=== PATIENT | female | born 1960 ===

== ENCOUNTER 2017-11-19 02:54 | Emergency (ER) | payer BC ==
[2017-11-19] MEDS ORDERED: KETOROLAC 30 MG/ML INJ ONE (03:30)
[2017-11-19] MEDS ORDERED: ONDANSETRON 4 MG/2 ML VIAL ONE (03:30)
[2017-11-19] MEDS ORDERED: NA CHLORIDE 0.9% 1,000 ML ONE (03:31)
[2017-11-19 03:48] LABS: Absolute Lymphocytes (CBC) 3.8 K/uL (0.7-4.9); Absolute Monocytes 1.4 K/uL (0.1-1.3); Absolute Neutrophil 7.2 K/uL (1.8-8.0); Basophils % 1.3 % (0-1.3); Eosinophils % 1.1 % (0-4.4); Hematocrit 40.8 % (36.0-45.0); MCV 92.8 fL (80-100); Monocytes % 10.9 % (3.3-12.3); RBC Red Blood Cell Count 4.39 M/uL (3.86-4.86)
[2017-11-19 04:08] LABS: Bilirubin Direct 0.1 mg/dL (0-0.2); Bilirubin Total 0.5 mg/dL (0.2-1.0); Potassium 3.2 mmol/L (3.5-5.1); Protein, Total 7.8 g/dL (6.4-8.2)
[2017-11-19 04:18] LABS: Urine Blood 2+ (NEG); Urine Glucose NEGATIVE (NEG); Urine Protein 1+ (NEG); Urine Specific Gravity >1.030 (1.005-1.030); Urine pH 5.5 (5.0-7.0)
[2017-11-19] MEDS ORDERED: PROMETHAZINE 25 MG/ML VIAL ONE (04:51)
[2017-11-19 04:57] LABS: Urine Bacteria <20 /HPF (<20); Urine Culture Reflex Order REFLEXED
[2017-11-19] MEDS ORDERED: POTASSIUM CL SA 10 MEQ TAB PO ONE (05:01)
[2017-11-19] MEDS ORDERED: MEPERIDINE HCL 25 MG/0.5 ML ONE (05:32)
--- NOTE | 2017-11-19 05:47 | ER ---
Nurse's Notes [facility] Name: Purvi Peck Age: 57 yrs Sex: Female : 1960 Arrival Date: 11/19/2017 Time: 02:59 Bed 25 Private MD: out of town, doctor Diagnosis: Right ureteral calculus with hydronephrosis and hydroureter Presentation: 11/19 03:15 Presenting complaint: Patient states: that for the past 2 days she has been having fc right side lower abd pain that radiates around to the back. States that she has hx of kidney stones and that it what it feels like. Transition of care: patient was not received from another setting of care. Onset of symptoms was November 17, 2017. Risk Assessment: Do you want to hurt yourself or someone else? Patient reports no desire to harm self or others. Care prior to arrival: None. 03:15 Method Of Arrival: Ambulatory 03:15 Acuity: ROWENA 3 fc 06:03 Initial Sepsis Screen: Does the patient meet any 2 criteria? No. Patient's initial [facility] sepsis screen is negative. Does the patient have a suspected source of infection? No. Patient's initial sepsis screen is negative. Triage Assessment: 06:02 General: Behavior is calm, cooperative. 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 - Social history:: Smoking status: Patient/guardian denies using tobacco. - Ebola Screening: : Patient negative for fever greater than or equal to 101.5 degrees Fahrenheit, and additional compatible Ebola Virus Disease symptoms Patient denies exposure to infectious person Patient denies travel to an Ebola-affected area in the 21 days before illness onset. Screenin:18 Abuse screen: Denies threats or abuse. Nutritional screening: No deficits noted. fc Tuberculosis screening: No symptoms or risk factors identified. Fall Risk None identified. Assessment: 03:44 General: Appears uncomfortable, well groomed, well developed. Pain: Complains of pain lc1 in back Pain currently is 10 out of 10 on a pain scale. Quality of pain is described as sharp, Pain began 2-3 days ago. Is continuous, Alleviated by nothing. Neuro: No deficits noted. Cardiovascular: No deficits noted. Respiratory: Airway is patent. GI: Bowel sounds present X 4 quads. Abd is soft X 4 quads Guarding noted. : No signs and/or symptoms were reported regarding the genitourinary system. EENT: No signs and/or symptoms were reported regarding the EENT system. Derm: No signs and/or symptoms reported regarding the dermatologic system. Musculoskeletal: No signs and/or symptoms reported regarding the musculoskeletal system. 04:21 Reassessment: No changes from previously documented assessment. Patient and/or family lc1 updated on plan of care and expected duration. Pain level reassessed. Patient states symptoms have not improved. Vital Signs: 03:15 Weight 83.91 kg (R); Height 5 ft. 4 in. (162.56 cm) (R); Pain 10/10; fc 03:19 BP 167 / 91 RA; Pulse 68; Resp 20; Temp 97.6(TE); Pulse Ox 98% ; Pain 10/10; lc1 03:35 BP 188 / 79; Pulse 68; lc1 04:29 BP 172 / 81; Pulse 57; Resp 20; Pulse Ox 100% on R/A; Pain 7/10; lc1 05:25 BP 174 / 80; Pulse 50; Resp 18; Temp 97.8(TE); Pain 6/10; lc1 05:42 BP 123 / 58; Pulse 69; Resp 18; lc1 03:15 Body Mass Index 31.75 (83.91 kg, 162.56 cm) ED Course: 02:59 Patient arrived in ED. es 02:59 out of town, doctor is Private Physician. es 03:08 Francisca Lau is Primary Nurse. lc1 03:08 Yaya Kulkarni MD is Attending Physician. pkl 03:15 Arm band placed on Patient placed in an exam room, on a stretcher. fc 03:18 Triage completed. fc 03:18 Allergy band placed. Placed in gown. Bed in low position. Call light in reach. 03:30 Inserted saline lock: 20 gauge in left antecubital area, using aseptic technique. Blood mw2 collected. 03:[address] via wheelchair. kw1 03:58 CT completed. Patient tolerated procedure well. Patient moved back from NE. kw1 04:00 CT Stone Protocol In Process Unspecified. EDMS 05:42 No provider procedures requiring assistance completed. IV discontinued, intact, lc1 bleeding controlled. Administered Medications: 03:30 Drug: NS 0.9% 1000 ml Route: IV; Rate: 1000 ml; Site: left antecubital; lc1 06:05 Follow up: IV Status: Completed infusion; IV Intake: 1000ml lc1 03:30 Drug: TORadol 30 mg Route: IVP; Site: left antecubital; lc1 03:46 Follow up: Response: No adverse reaction lc1 03:30 Drug: Zofran 4 mg Route: IVP; Site: left antecubital; lc1 03:47 Follow up: Response: No adverse reaction lc1 04:35 Drug: TORadol 30 mg Route: IVP; Site: left antecubital; lc1 05:00 Follow up: Response: Pain is decreased lc1 04:56 Drug: Phenergan 12.5 mg Route: IVP; Site: left antecubital; lc1 05:00 Follow up: Response: No adverse reaction lc1 04:59 Drug: K-Dur 40 mEq Route: PO; lc1 05:00 Follow up: Response: No adverse reaction lc1 05:38 Drug: Demerol 25 mg Route: IVP; Site: left antecubital; lc1 06:03 Follow up: Response: Pain is decreased lc1 Intake: 06:05 IV: 1000ml; Total: 1000ml. lc1 Outcome: 05:42 Discharged to home via wheelchair. lc1 05:42 Condition: improved 05:42 Discharge instructions given to significant other, Instructed on discharge instructions, follow up and referral plans. medication usage, Demonstrated understanding of instructions, follow-up care, medications. 05:46 Discharge ordered by . patrick 06:04 Patient left the ED. lc1 Signatures: Dispatcher [employer] EDYaya Baires MD MD pkl Salyer, Edna es Chretien, Felicia, RN RN Francisca Joiner lc1 Edna Iyer kw1 [place], Nona mw2 Corrections: (The following items were deleted from the chart) 03:38 03:37 Inserted saline lock: 20 gauge in left antecubital area, using aseptic technique. mw2 Blood collected. mw2
--- NOTE | 2017-11-19 05:47 | EDPHYS ---
Physician Documentation [facility] Name: Purvi Peck Age: 57 yrs Sex: Female : 1960 Arrival Date: 11/19/2017 Time: 02:59 Bed 25 Private MD: out of town, doctor ED Physician Yaya Kulkarni HPI: 11/19 03:23 This 57 yrs old Female presents to ER via Ambulatory with complaints of Possible Kidney pkl Stone. 03:23 The patient complains of pain in the right flank. The pain does not radiate. Onset: The pkl symptoms/episode began/occurred just prior to arrival, 2 day(s) ago, and became worse. The patient has experienced similar episodes in the past, a few times. H/O kidney stones. 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 - Social history:: Smoking status: Patient/guardian denies using tobacco. - Ebola Screening: : Patient negative for fever greater than or equal to 101.5 degrees Fahrenheit, and additional compatible Ebola Virus Disease symptoms Patient denies exposure to infectious person Patient denies travel to an Ebola-affected area in the 21 days before illness onset. ROS: 03:23 Eyes: Negative for injury, pain, redness, and discharge, ENT: Negative for injury, pkl pain, and discharge, Neck: Negative for injury, pain, and swelling, Cardiovascular: Negative for chest pain, palpitations, and edema, Respiratory: Negative for shortness of breath, cough, wheezing, and pleuritic chest pain, Abdomen/GI: Negative for abdominal pain, nausea, vomiting, diarrhea, and constipation. 03:23 Back: Positive for flank pain, on the right. 03:23 : Negative for urinary symptoms. 03:23 MS/extremity: Negative for acute changes. 03:23 Skin: Negative for rash. 03:23 Neuro: Negative for altered mental status. Exam: 03:23 Head/Face: Normocephalic, atraumatic. Eyes: Pupils equal round and reactive to light, pkl extra-ocular motions intact. Lids and lashes normal. Conjunctiva and sclera are non-icteric and not injected. Cornea within normal limits. Periorbital areas with no swelling, redness, or edema. ENT: Nares patent. No nasal discharge, no septal abnormalities noted. Tympanic membranes are normal and external auditory canals are clear. Oropharynx with no redness, swelling, or masses, exudates, or evidence of obstruction, uvula midline. Mucous membranes moist. Neck: Trachea midline, no thyromegaly or masses palpated, and no cervical lymphadenopathy. Supple, full range of motion without nuchal rigidity, or vertebral point tenderness. No Meningismus. Chest/axilla: Normal chest wall appearance and motion. Nontender with no deformity. No lesions are appreciated. Cardiovascular: Regular rate and rhythm with a normal S1 and S2. No gallops, murmurs, or rubs. Normal PMI, no JVD. No pulse deficits. Respiratory: Lungs have equal breath sounds bilaterally, clear to auscultation and percussion. No rales, rhonchi or wheezes noted. No increased work of breathing, no retractions or nasal flaring. Abdomen/GI: Soft, non-tender, with normal bowel sounds. No distension or tympany. No guarding or rebound. No evidence of tenderness throughout. 03:23 Back: pain, that is moderate, of the right flank. 03:23 : Exam negative for acute changes. 03:23 Musculoskeletal/extremity: Exam is negative for acute changes. 03:23 Skin: Exam negative for rash. 03:23 Neuro: Orientation: is normal, Mentation: is normal, Cranial nerves: grossly normal, Motor: is normal. Vital Signs: 03:15 Weight 83.91 kg (R); Height 5 ft. 4 in. (162.56 cm) (R); Pain 10/10; fc 03:19 BP 167 / 91 RA; Pulse 68; Resp 20; Temp 97.6(TE); Pulse Ox 98% ; Pain 10/10; lc1 03:35 BP 188 / 79; Pulse 68; lc1 04:29 BP 172 / 81; Pulse 57; Resp 20; Pulse Ox 100% on R/A; Pain 7/10; lc1 05:25 BP 174 / 80; Pulse 50; Resp 18; Temp 97.8(TE); Pain 6/10; lc1 05:42 BP 123 / 58; Pulse 69; Resp 18; lc1 03:15 Body Mass Index 31.75 (83.91 kg, 162.56 cm) fc MDM: 03:08 Patient medically screened. pkl 05:01 Data reviewed: vital signs, nurses notes, lab test result(s), radiologic studies, CT pkl scan. 11/19 03:21 Order name: Amylase, Serum; Complete Time: 04:08 pkl 11/19 03:21 Order name: Basic Metabolic Panel; Complete Time: 04:08 pkl 11/19 03:21 Order name: CBC with Diff; Complete Time: 04:03 pkl 11/19 03:21 Order name: Creatinine for Radiology; Complete Time: 04:05 pkl 11/19 03:21 Order name: Hepatic Function; Complete Time: 04:08 pkl 11/19 03:21 Order name: Lipase; Complete Time: 04:08 pkl 11/19 03:21 Order name: Urine Microscopic Only; Complete Time: 05:51 pkl 11/19 03:27 Order name: CT Stone Protocol pkl 11/19 03:41 Order name: Urine Dipstick--Ancillary (enter results); Complete Time: 04:54 ms 11/19 04:59 Order name: Urine Culture EDMS 11/19 03:21 Order name: IV Saline Lock; Complete Time: 03:36 pkl 11/19 03:21 Order name: Labs collected and sent; Complete Time: 03:36 pkl 11/19 03:21 Order name: Urine Dipstick-Ancillary (obtain specimen); Complete Time: 03:37 pkl Administered Medications: 03:30 Drug: NS 0.9% 1000 ml Route: IV; Rate: 1000 ml; Site: left antecubital; lc1 06:05 Follow up: IV Status: Completed infusion; IV Intake: 1000ml 1 03:30 Drug: TORadol 30 mg Route: IVP; Site: left antecubital; lc1 03:46 Follow up: Response: No adverse reaction 1 03:30 Drug: Zofran 4 mg Route: IVP; Site: left antecubital; lc1 03:47 Follow up: Response: No adverse reaction lc1 04:35 Drug: TORadol 30 mg Route: IVP; Site: left antecubital; lc1 05:00 Follow up: Response: Pain is decreased lc1 04:56 Drug: Phenergan 12.5 mg Route: IVP; Site: left antecubital; lc1 05:00 Follow up: Response: No adverse reaction lc1 04:59 Drug: K-Dur 40 mEq Route: PO; lc1 05:00 Follow up: Response: No adverse reaction lc1 05:38 Drug: Demerol 25 mg Route: IVP; Site: left antecubital; lc1 06:03 Follow up: Response: Pain is decreased lc1 Disposition: 11/19/17 05:46 Discharged to Home. Impression: Right ureteral calculus with hydronephrosis and hydroureter. - Condition is Stable. - Prescriptions for Ultram 50 mg Oral Tablet - take 1 tablet by ORAL route every 8 hours As needed; 30 tablet. Flomax 0.4 mg Oral Capsule, Sust. Release 24 hr - take 1 capsule by ORAL route once daily 1/2 hour following the same meal each day; 15 capsule. Cipro 500 mg Oral Tablet - take 1 tablet by ORAL route every 12 hours for 7 days; 14 tablet. - Medication Reconciliation Form, Thank You Letter, Antibiotic Education, Prescription Opioid Use form. - Follow up: Private Physician; When: 2 - 3 days; Reason: Re-evaluation by your physician. - Problem is new. - Symptoms have improved. Signatures: Dispatcher [employer] EDDC Yaya Kulkarni MD MD pkl Chretien, Felicia RN RN Francisca Joiner [facility] Corrections: (The following items were deleted from the chart) 06:04 05:46 11/19/2017 05:46 Discharged to Home. Impression: Right ureteral calculus with lc1 hydronephrosis and hydroureter. Condition is Stable. Forms are Medication Reconciliation Form, Thank You Letter, Antibiotic Education, Prescription Opioid Use. Follow up: Private Physician; When: 2 - 3 days; Reason: Re-evaluation by your physician. Problem is new. Symptoms have improved. [email or web address]
--- NOTE | 2017-11-19 11:34 | RAD REPORT ---
EXAM DESCRIPTION: CT - Stone Protocol - 11/19/2017 5:53 am CLINICAL HISTORY: Flank pain. right flank pain COMPARISON: No comparisons TECHNIQUE: Axial images were obtained without oral or IV contrast. Lack of contrast limits solid org an and vascular assessment. The [id number] spans the entirety of the system partially obscuring uppermost abdomen and lung bases. Coronal reformatted images were obtained and reviewed. All CT scans are performed using dose optimization technique as appropriate and may include automated exposure control or mA/KV adjustment according to patient size. FINDINGS: The lower lung connor are clear. Imaged portions of the liver and spleen show no suspicious findings on non-contrast imaging.Cholecyst ectomy clips. The pancreas and adrenal glands are normal. No pathologic lymphadenopathy in the abdome n or pelvis. 4-5 mm calculus (1000 HU) is present in the proximal right ureter resulting in mild right hydronephro sis. Additional right-sided nephrolithiasis is present. No bowel obstruction, free air, free fluid or abscess. The appendix appears absent. Moderate lumbosacral degenerative changes are present. IMPRESSION: 4-5 mm calculus proximal right ureter resulting in mild right hydronephrosis. Additional right nephrolithiasis.
== END 2017-11-19 06:04 | disposition home or self-care (01) ==
LOC: ER 02:54
DX: N13.1 Hydronephrosis with ureteral stricture, not elsewhere classified (principal); N13.4 Hydroureter; I10 Essential (primary) hypertension; F32.9 Major depressive disorder, single episode, unspecified; F90.9 Attention-deficit hyperactivity disorder, unspecified type
CPT/HCPCS: 36415; 74176; 76377; 80048; 80076; 81003; 81015; 82150; 83690; 85025; 87086; 87088; 96361; 96374; 96375; 99284; J2175; J2405; J2550; J7030